=== PATIENT | male | born 1980 | race Caucasian/White ===

== ENCOUNTER 2017-10-06 08:55 | Emergency (ER) | payer OTHER ==
[2017-10-06 09:12] VITALS: BP 130/99
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
== END 2017-10-06 09:59 | disposition home or self-care (01) ==
LOC: UCCORT 08:55
DX: S93.402A Sprain of unspecified ligament of left ankle, initial encounter (principal); V86.92XA Unspecified occupant of snowmobile injured in nontraffic accident, initial encounter; Y93.89 Activity, other specified; Y92.9 Unspecified place or not applicable; I10 Essential (primary) hypertension; Z88.0 Allergy status to penicillin; F17.200 Nicotine dependence, unspecified, uncomplicated
CPT/HCPCS: 99202; G0463